=== PATIENT | male | born 1985 | race African-American/Black ===

== ENCOUNTER 2017-07-10 17:40 | Emergency (ER) | payer SELFPAY ==
[~2017-07-10] VITALS: Ht 177.8 cm; Wt 90.0 kg
[2017-07-10 18:16] VITALS: BP 122/55; PULSE 59; RESP 16; TEMP 98.5; O2SAT 97
--- NOTE | 2017-07-10 18:42 | RADRPT ---
EXAM DATE/TIME: 07/10/2017 18:30 [place] COMPARISON: No previous studies available for comparison. INDICATIONS : Fall, complains of left wrist pain. MEDICAL HISTORY : None. SURGICAL HISTORY : None. ENCOUNTER: Initial ACUITY: 1 day PAIN SCORE: 10/10 LOCATION: Left wrist FINDINGS: Three view examination of the left wrist demonstrates no soft tissue swelling, dislocation, or fractu re. The carpal bones are in normal alignment. The joint spaces are maintained. Bony mineralization is normal. CONCLUSION: Negative for fracture or dislocation. Follow up in 7-10 days is suggested if symptoms persist. Solo Lipscomb MD FACR on July 10, 2017 at 18:39 Board Certified Radiologist. This report was verified electronically.
--- NOTE | 2017-07-10 23:30 | PD ---
HPI Chief Complaint: Injury Time Seen by Provider: 22:47 Travel History International Travel<30 days: No Contact w/Intl Traveler<30days: No Traveled to known affect area: No History of Present Illness HPI This patient complains of injury to his left wrist. He slipped off a ladder and hit the ground with his feet but then fell backwards and caught himself on the left wrist. Complains of pain in the left wrist which is worse with movement. Severity is moderate. PFSH Past Medical History Medical History: Denies Significant Hx Influenza Vaccination: No Past Surgical History Surgical History: No Previous Surgery Social History Alcohol Use: Yes (SOCIAL WINE) Tobacco Use: Yes Substance Use: No Allergies-Medications (Allergen,Severity, Reaction): Coded Allergies: pineapple (Verified Allergy, Severe, TONGUE SWELLING, 07/10/17) Reported Meds & Prescriptions Reported Meds & Active Scripts Active No Active Prescriptions or Reported Medications Review of Systems General / Constitutional: No: Fever HENT: No: Headaches Cardiovascular: No: Chest Pain or Discomfort Physical Exam Narrative Psych: Normal mood and affect. Normal insight and judgment. SKIN: Focused skin assessment reveals no rash or ulcers. Skin is warm and dry. Palpation shows no induration or nodules. Left wrist: Some tenderness over the dorsal aspect of the wrist. There is no snuffbox tenderness. There is no open wound. No visible bruising or swelling. Capillary refill and pulses intact Data Data Last Documented VS Vital Signs Date Time Temp Pulse Resp B/P (MAP) Pulse Ox O2 Delivery O2 Flow Rate FiO2 07/10/17 18:16 98.5 59 16 122/55 (77) 97 Orders Orders Wrist, Complete ([id number]) (07/10/17 ) Splint Or Brace Apply/Monitor (07/10/17 22:50) Cockup Hand Splint (07/10/17 ) MDM Medical Decision Making Medical Screen Exam Complete: Yes Emergency Medical Condition: Yes Medical Record Reviewed: Yes Differential Diagnosis Contusion, fracture, dislocation Narrative Course I have reviewed the patient's electronic medical record. I reviewed his left wrist x-rays which are negative for fracture or dislocation Supportive care discussed. I placed him in a left wrist Velcro stirrup splint He will ice and elevate The patient was advised to follow up with their physician and return if they worsen. Diagnosis Primary Impression: Soft tissue injury of left wrist Qualified Codes: S69.92XA - Unspecified injury of left wrist, hand and finger( s), initial encounter Additional Instructions: The patient was advised to follow up with their physician and return if they worsen. Med/Other Pt SpecificInfo: Other Scripts No Active Prescriptions or Reported Meds Disposition: 01 DISCHARGE HOME Condition: Stable Clay Clement MD Jul 10, 2017 23:30
== END 2017-07-10 23:49 | disposition home or self-care (01) ==
LOC: NEPD 17:40
DX: S69.82XA Other specified injuries of left wrist, hand and finger(s), initial encounter (principal); W11.XXXA Fall on and from ladder, initial encounter; Z72.0 Tobacco use
CPT/HCPCS: 73110; 99283; L3908